=== PATIENT | female | born 1970 | race Two or more races ===

== ENCOUNTER 2016-12-17 13:44 | Inpatient (IN) | payer OTHER ==
--- NOTE | ~2016-12-17 | DS ---
Unit #: [id number] #: [id number] Patient: AMANDA GREENFIELD [id number] [address] [place], [place] [address] [id number] I MR#: [id number] NAME: AMANDA GREENFIELD ROOM: 338 Age: 46 Sex: F Admission Date: 12/17/2016 : 1970 Discharge Date: 12/18/2016 Attending Physician: Valdemar Alejandro M.D. Primary Care Physician: Jose Quintanilla M.D. DISCHARGE SUMMARY PRIMARY CARE PHYSICIAN Aure Vann M.D. DISCHARGE DIAGNOSES 1. Melena. 2. Likely lower gastrointestinal bleed. 3. Acute on chronic blood loss anemia. 4. Hyponatremia. CONSULTANTS General Surgery with Dr. Flaherty. PROCEDURES None. DIAGNOSTIC STUDIES IMAGING STUDIES: Consist of a chest x-ray on 12/17/2016, impression is low lung volumes, otherwise normal portable chest x-ray. LABORATORY RESULTS: On the day of discharge, the patient's labs include glucose 103, BUN 13, creatinine 0.8, sodium 139, potassium 4.2, chloride 107, CO2 of 23, calcium 2.9. CBC with WBC of 6.0, RBC 3.46, hemoglobin 8.9, hematocrit 27.4, MCV is 79.3, MCH is 25.9, MCHC is 32.6, RDW is 17.8, platelets are 285, MVP is 7.0. HOSPTIAL COURSE The patient is a 46-year-old St Helenian speaking only female, who presents to the emergency department due to symptoms of tiredness and weakness. The patient has history of GI bleed secondary to ulcerative esophagitis, presented to the emergency department with three days symptoms of tiredness and weakness and feeling as though she wanted to pass out, as well as black tarry stools. The patient has also been complaining of dizziness and palpitations. The patient had denied fever, chills, nausea, or vomiting. The patient denies any vaginal or bleeding ulcers. The patient have not menstruated for the past 8 months. The patient tells me that since her last hospitalization in 02/2016 for GI bleed, the patient have not seen a farm machinery erector or general surgeon. She has been seeing her primary care physician. She tells me that every time she sees her primary care physician, they do blood work and she never had a hemoglobin above 8.0. She tells me that recently she was started on therapy, which she describes it as likely therapy for H. pylori. She tells me that the treatment will be done by Thursday, but she presented to Unit #: [id number] #: [id number] Patient: AMANDA GREENFIELD the emergency department due to symptoms noted above. She had received 2 units of packed red blood cells. Her hemoglobin was 8.9 at the time of discharge. She was no longer symptomatic from anemia and no longer was seeing any melena. She was seen in consultation with surgery, who had offered her endoscopy to evaluate for the anemia, but the patient was very anxious to go home, therefore General Surgery had offered an outpatient workup next Thursday and again she had insisted on going home, therefore Dr. Flaherty of General Surgery have stressed to her that the patient should not be taking aspirin or NSAIDs or any other type of anti-inflammatory medications to refrain from tobacco or alcohol and spicy foods and to take omeprazole every day. She will follow up with him in his office on Thursday. At the time of discharge, the patient is in stable condition. DISCHARGE MEDICATIONS Includes to resume with her home management of Carafate 1 g orally t.i.d., calcium plus magnesium one tablet as needed, Protonix orally b.i.d. Added to her medicine ferrous gluconate one tablet orally daily. The patient is to see her primary care physician within 1 to 2 weeks for this hospitalization. Dictated by... Raine Rodgers PA-C for Stefano Andrade/dilip TD: 12/22/2016 11:33 JOB #: [id number] DISCHARGE SUMMARY X X DISCHARGE SUMMARY
--- NOTE | ~2016-12-17 | CR72 ---
[facility] A Service [facility] RADIOLOGY TEXT RESULTS PATIENT: AMANDA GREENFIELD LOCATION: [facility] 338-01 : [birth year] UNIT #: [id number] AGE: [address]: Valdemar Alejandro MD SEX: F ORDER DR: [id number] [address] [place] [id number] [facility]. [place], [place] [address] [id number] E MR#: [id number] Acc #: [id number] NAME: AMANDA GREENFIELD : 1970 SEX: F STUDY DATE/TIME: 12/17/2016 13:36 UNIT: CHARO ROOM: STUDY DESCRIPTION: CR Chest Single View Portable Attending Physician: Aure Vann M.D. Ordering Physician: Aure Vann M.D. Primary Care Physician: Jose Quintanilla M.D. MEDICAL IMAGING REPORT This report is preliminary unless electronic signature is present EXAM Chest, portable. DATE OF EXAM 12/17/2016, 1336 hours. CLINICAL HISTORY 46-year-old woman complaining of 2-day history of shortness of air, fatigue and weakness. COMPARISON None. FINDINGS Portable upright chest demonstrates low lung volumes. Allowing for this, the heart size is within normal limits. Mediastinal and hilar contours are normal. The lungs are clear and there are no effusions. IMPRESSION Low lung volumes, otherwise, normal portable chest. Dictated by... Bárbara Nayak M.D. THIS IS AN ELECTRONICALLY VERIFIED REPORT Bárbara Nayak M.D. at 12/18/2016 9:23 AM ROYER/josé miguel TD: 12/17/2016 15:51 JOB #: [id number] MEDICAL IMAGING REPORT [facility] A Service [facility] RADIOLOGY TEXT RESULTS PATIENT: AMANDA GREENFIELD LOCATION: [facility] 338-01 : [birth year] UNIT #: [id number] AGE: [address]: Valdemar Alejandro MD SEX: F ORDER DR: COPY
--- NOTE | ~2016-12-17 | HP ---
Unit #: [id number] #: [id number] Patient: AMANDA GREENFIELD [id number] [address] [address] [id number] I MR#: [id number] NAME: AMANDA GREENFIELD ROOM: [facility] Age: 46 Sex: F Admission Date: 12/17/2016 : 1970 Attending Physician: Zora Cisse M.D. Primary Care Physician: Jose Quintanilla M.D. HISTORY AND PHYSICAL CHIEF COMPLAINT Tired, weakness. HISTORY OF PRESENT ILLNESS The patient is a 46-year-old female with a history of GI bleed secondary to ulcerative esophagitis, presented to the emergency room with tired and weakness for two weeks. The patient stated the patient has not been feeling well, however, for the last 3 days the patient started passing black tarry stools. The patient also complains of dizziness and palpitations. The patient is Samoan-speaking and history is obtained by speaking to the patient's brother at the bedside. The patient denies any fever, chills, nausea or vomiting. The patient denies any vaginal or bleeding ulcer. PAST MEDICAL HISTORY History of GI bleed. HOME MEDICATIONS 1. Antacid chewable tablets. 2. Carafate. ALLERGIES No known drug allergies. SOCIAL HISTORY No history of smoking. She uses alcohol socially. Denies any illicit drug abuse. FAMILY HISTORY Reviewed and none. REVIEW OF SYSTEMS A 14-point review of systems performed and only pertinent positive findings as described above, remaining are negative. PHYSICAL EXAMINATION VITAL SIGNS: Temperature 98.4, pulse 77, respiratory rate 15, blood pressure 118/66, saturating 100% at room air. GENERAL: Patient is lying on the bed not in acute distress. HEENT: Atraumatic, normocephalic. Pupils equal, round, and reactive to light and accommodation. Extraocular movements are intact. Dry mucous membrane. Positive for pallor, no icterus. NECK: Supple. No JVD. LUNGS: Clear to auscultation bilaterally. No rhonchi, no wheezing. Unit #: [id number] #: [id number] Patient: AMANDA GREENFIELD HEART: Regular rate and rhythm. ABDOMEN: Soft, positive bowel sounds. EXTREMITIES: No cyanosis, no clubbing. NEUROLOGIC: No gross focal motor deficit. PSYCHIATRIC: Mood and affect are appropriate. DIAGNOSTIC STUDIES LABORATORY: Glucose 98, BUN 17, creatinine 0.7, sodium 134, potassium 4, chloride 108, bicarb 25, calcium 8.7, total protein 6.6, AST 16, ALT 14, alkaline phosphatase 44. Hemoglobin 6.7, hematocrit 21.5, WBC 5.8, platelets 310. UA is negative. ASSESSMENT AND PLAN 1. Melena. 2. Gastrointestinal bleed. 3. Anemia. 4. Hyponatremia. PLAN 1. Admit patient to inpatient with telemetry with the anemia that is symptomatic with dizziness and palpitations. 2. Patient is receiving 2 units of packed red blood cells. 3. Continue with Protonix 40 mg IV b.i.d. 4. [facility] consult/gastroenterology consult for the endoscopy as patient was seen by [facility] in the past for upper endoscopy. 5. Repeat the labs again in the morning. 6. Further recommendations will follow. Dictated by Stefano Wilson/rivka TD: 12/17/2016 20:55 JOB #: [id number] HISTORY AND PHYSICAL X X HISTORY AND PHYSICAL
--- NOTE | ~2016-12-17 | CO ---
Unit #: [id number] #: [id number] Patient: AMANDA GREENFIELD [id number] [address] [address] [id number] I MR#: [id number] NAME: AMANDA GREENFIELD ROOM: [facility] Age: 46 Sex: F Admission Date: 12/17/2016 : 1970 Attending Physician: Valdemar Alejandro M.D. Primary Care Physician: Jose Quintanilla M.D. Consultation Date: 12/18/2016 CONSULTATION REPORT REASON FOR CONSULTATION 1. Melena. 2. Blood loss anemia. CONSULTING PHYSICIAN Dr. Valdemar Alejandro of [facility]. HISTORY OF PRESENT ILLNESS Thank you very much for asking us to see Ms. Coronado. She is a 46-year-old female. We spoke with her through sales project engineer [id number]. Her past medical history is remarkable for GI bleed in February of last year. At that time, upper endoscopy revealed her to have a proximal gastric ulcer. She was began on proton pump inhibitors and acids and Carafate. She had been doing well off the medications until approximately 10-14 days ago. She began to not feel well. She restarted [id number] omeprazole. She developed an increased feeling of weakness and being tired. She developed melena three days ago. She came to the emergency room for further evaluation. She subsequently was found to have a hemoglobin of 6.7 with a MCV of 79.1. She received 2 units of packed red blood cells and her hemoglobin is now 8.9. She denies any aspirin or nonsteroidal use. She drinks minimal alcohol. She has no abdominal pain and discomfort. She presents at this time for further evaluation and treatment. PAST MEDICAL HISTORY History of GI bleed. MEDICATIONS AT HOME 1. Antacids. 2. Omeprazole. ALLERGIES No known medical allergies. SOCIAL HISTORY No current history of smoking, rare alcohol use. FAMILY HISTORY Noncontributory. REVIEW OF SYSTEMS Negative except for above. IMMUNIZATION Unit #: [id number] #: [id number] Patient: AMANDA GREENFIELD Immunization status unknown. PHYSICAL EXAMINATION GENERAL: A well-developed, well-nourished, female in no apparent distress. VITAL SIGNS: Afebrile. Vital signs stable. ABDOMEN: Flat, soft, nontender. DIAGNOSTIC STUDIES LABORATORY: Laboratory studies reveal to the patient have a CMP that is normal. The patient's hemoglobin on admission was 6.7, it is now 8.9 after 2 units of packed red blood cells. IMPRESSION A 46-year-old female with melena and significant anemia, most likely secondary to blood loss. We have recommended upper as well as lower endoscopy for further evaluation. All the risks and benefits of the procedure have been fully explained to the patient in detail including the risk of bleeding, perforation, emergency surgery, additional surgery, , and other risks. She understands completely; however, she wishes to go home and have this performed as an outpatient early next week. We have explained to the patient that we feel it would be safest and best to do this here while she is stable and things are controlled; however, she is insistent on leaving and understands and accepts the risks of recurrent bleeding, falling, , returning to the emergency room, and many other additional risks. We have recommended no aspirin or nonsteroidal anti-inflammatory medications, no tobacco or alcohol or spicy foods and to take two omeprazole every day. My office will make the arrangements for the patient to have endoscopy performed early next week. Dictated by... Stefano Jade TD: 12/19/2016 09:08 JOB #: [id number] CC: [facility] CONSULTATION REPORT X Niles Flaherty MD X CONSULTATION REPORT
--- NOTE | ~2016-12-17 | EKG ---
PATIENT: AMANDA GREENFIELD UNIT #: [id number] Ventricular Rate: 67 BPM Atrial Rate: 67 BPM P-R Interval: 180 ms QRS Duration: 90 ms Q-T Interval: 354 ms QTC Calculation(Bezet): 374 ms P [place]: 23 degrees Calculated R [place]: 3 degrees Calculated T [place]: 5 degrees Diagnosis Line: Normal sinus rhythm with sinus arrhythmia Diagnosis Line: Normal ECG Diagnosis Line: Diagnosis Line: Confirmed by CHANNING MCHUGH MD ([id number]) on 12/17/2016 Diagnosis Line: 6:25:35 PM INTERPRETING MD: JEISON ROMO
[~2016-12-17 13:44] MED LIST: ANTACID CHEWAB1 EACH PO; CARAFATE1 GM PO; PROTONIX PO; PROTONIX20 MG PO
[2016-12-17 14:14] LABS: URINE SOURCE CLEAN CATCH
[2016-12-17 14:26] LABS: URINE APPEARANCE CLEAR; URINE BILIRUBIN NEG (NEG); URINE BLOOD NEG (NEG); URINE COLOR YELLOW; URINE GLUCOSE NEG (NEG); URINE KETONE NEG (NEG); URINE LEUKOCYTE ESTERASE NEG (NEG); URINE NITRATE NEG (NEG); URINE PH 5.5 (5-8); URINE PROTEIN NEG (NEG); URINE SPECIFIC GRAVITY 1.019 (1.003-1.035); URINE UROBILINOGEN 0.2 MG/DL (NEG)
[2016-12-17 14:30] LABS: CULTURE INDICATED? NO
[2016-12-17 14:49] LABS: POC - CKMB <1.0 ng/mL (0.0-7.9); POC - TROPONIN <0.05 ng/mL (<=0.05)
[2016-12-17 15:08] LABS: BASOPHIL# 0.1 X10e3 (0-0.3); BASOPHIL% 1.2 % (0-2.5); EOSINOPHIL# 0.1 X10e3 (0-0.7); EOSINOPHIL% 1.6 % (0.0-7.0); HEMATOCRIT 21.5 % (35.0-45.0); LYMPHOCYTE# 1.4 X10e3 (1.0-3.5); LYMPHOCYTE% 24.6 % (17.0-45.0); MEAN CELL VOLUME 79.1 FL (83-96); MEAN CORPUSCULAR HEMOGLOBIN 24.8 PG (28-34); MEAN CORPUSCULAR HGB CONC 31.4 g/dL (30-36); MEAN PLATELET VOLUME 7.5 FL (6.5-11.5); MONOCYTE# 0.4 X10e3 (0-1.0); MONOCYTE% 6.6 % (3.0-12.0); NEUTROPHIL# 3.8 X10e3 (1.5-7.1); PLATELET COUNT 310 X10e3 (140-420); RED BLOOD COUNT 2.71 X10e (3.90-5.30); RED CELL DISTRIBUTION WIDTH 18.6 % (11.0-15.5); WHITE BLOOD COUNT 5.8 X10e3 (4.0-10.5)
[2016-12-17 15:17] LABS: DIFF IND YES; HEMOGLOBIN 6.7 gm/dL (12.0-16.0)
[2016-12-17 15:31] LABS: ALBUMIN SERUM 3.7 g/dL (3.5-5.0); ALKALINE PHOSPHATASE 44 U/L (32-92); ALT (SGPT) 14 U/L (10-40); AST (SGOT) 16 U/L (10-42); BILIRUBIN, DIRECT <0.1 mg/dL (0.0-0.2); BILIRUBIN,INDIRECT 0.2 mg/dL (0.0-0.9); BILIRUBIN,TOTAL 0.3 mg/dL (0.2-2.0); BLOOD UREA NITROGEN 17 mg/dL (9-23); BUN/CREATININE RATIO 24.28; CALCIUM SERUM 8.7 mg/dL (8.4-10.2); CARBON DIOXIDE 25 mmol/L (22-31); CHLORIDE 108 mmol/L (100-111); CREATININE SERUM 0.7 mg/dL (0.6-1.4); GLOM FILT RATE Estimated ABOVE60 mL/min (>60); GLUCOSE FASTING 98 mg/dL (70-110); PROTEIN TOTAL SERUM 6.6 g/dL (6.0-8.3); SODIUM 134 mmol/L (135-145)
[2016-12-17 15:35] LABS: ANISOCYTOSIS SL; HYPOCHROMIA SL; PLATELET ESTIMATE NORMAL (NORMAL); POIKILOCYTOSIS SL; RBC NORMAL YES
[2016-12-18 06:28] LABS: BASOPHIL# 0.1 X10e3 (0-0.3); EOSINOPHIL# 0.2 X10e3 (0-0.7); EOSINOPHIL% 2.7 % (0.0-7.0); HEMATOCRIT 27.4 % (35.0-45.0); LYMPHOCYTE# 1.9 X10e3 (1.0-3.5); LYMPHOCYTE% 32.1 % (17.0-45.0); MEAN CELL VOLUME 79.3 FL (83-96); MEAN CORPUSCULAR HEMOGLOBIN 25.9 PG (28-34); MEAN CORPUSCULAR HGB CONC 32.6 g/dL (30-36); MEAN PLATELET VOLUME 7.8 FL (6.5-11.5); MONOCYTE# 0.4 X10e3 (0-1.0); NEUTROPHIL# 3.4 X10e3 (1.5-7.1); NEUTROPHIL% 57.2 % (40-75); PLATELET COUNT 285 X10e3 (140-420); RED BLOOD COUNT 3.46 X10e (3.90-5.30); RED CELL DISTRIBUTION WIDTH 17.8 % (11.0-15.5)
[2016-12-18 06:41] LABS: HEMOGLOBIN 8.9 gm/dL (12.0-16.0)
[2016-12-18 06:42] LABS: DIFF IND NO
[2016-12-18 07:24] LABS: BLOOD UREA NITROGEN 15 mg/dL (9-23); BUN/CREATININE RATIO 18.75; CALCIUM SERUM 9.2 mg/dL (8.4-10.2); CARBON DIOXIDE 23 mmol/L (22-31); CHLORIDE 107 mmol/L (100-111); CREATININE SERUM 0.8 mg/dL (0.6-1.4); GLOM FILT RATE Estimated ABOVE60 mL/min (>60); GLUCOSE FASTING 103 mg/dL (70-110); POTASSIUM 4.2 mmol/L (3.5-5.1); SODIUM 139 mmol/L (135-145)
[2016-12-18] MEDS ORDERED: IRON1 TAB PO (15:56)
[2016-12-24] MEDS ORDERED: PRILOSEC PO (09:42)
== END 2016-12-18 16:22 | disposition home or self-care (01) | DRG 378 ==
LOC: CED 13:44 → CEDOF 19:03 → C3A PCU 20:30
PROVIDERS: Emergency Medicine; Internal Medicine
PROC: 30233N1 Transfusion of Nonautologous Red Blood Cells into Peripheral Vein, Percutaneous Approach (ICD-10-PCS; principal; 2016-12-17)
DX: K92.2 Gastrointestinal hemorrhage, unspecified (principal); D62 Acute posthemorrhagic anemia; E87.1 Hypo-osmolality and hyponatremia; B96.81 Helicobacter pylori [H. pylori] as the cause of diseases classified elsewhere
CPT/HCPCS: 36415; 71010; 80048; 80076; 81003; 82553; 82947; 84484; 85025; 86850; 86900; 86901; 86923; 93005; 94760; 99285; C9113; P9016

== ENCOUNTER → 2016-12-24 | Day surgery (SDC) | payer OTHER ==
[~2016-12-24] MED LIST changes: +IRON1 TAB PO; +PRILOSEC PO
== END | disposition home or self-care (01) ==
LOC: COPS 08:35
DX: D64.9 Anemia, unspecified (principal); Z53.9 Procedure and treatment not carried out, unspecified reason; Z87.440 Personal history of urinary (tract) infections; Z79.899 Other long term (current) drug therapy
CPT/HCPCS: 84703

== ENCOUNTER → 2017-03-17 | Outpatient (CLI) | payer OTHER ==
--- NOTE | ~2017-03-17 | MY7 ---
[facility] A Service of [facility] & [facility] RADIOLOGY TEXT RESULTS PATIENT: AMANDA CABAN LOCATION: [facility] : 70 UNIT #: [id number] AGE: [address]: Jose Quintanilla MD SEX: F ORDER DR: [id number] [facility] [address] [place], [place] [address] [id number] O MR#: [id number] Acc #: [id number] NAME: AMANDA CABAN : 1970 SEX: F STUDY DATE/TIME: 03/17/2017 11:35 UNIT: [facility] ROOM: STUDY DESCRIPTION: MY Mammogram Dx Dig Lt Attending Physician: Jose Quintanilla M.D. Referring Physician: Jose Quintanilla M.D. Ordering Physician: Jose Quintanilla M.D. Primary Care Physician: Jose Quintanilla M.D. MEDICAL IMAGING REPORT This report is preliminary unless electronic signature is present EXAM Diagnostic left mammogram 03/17 INDICATIONS 6-month follow up of nodular density seen on prior baseline screening mammogram. FINDINGS Digital CC, MLO, ML views of the left breast are compared with 06/12/2016. Breast parenchyma remains heterogeneously dense. The pattern overall is stable. A partially obscured nodule in the upper outer deep breast does measure smaller today. It was previously about 1.6 cm mammographically and today is about 1.1 cm. No new mammographic lesions are seen, and there are no suspicious microcalcifications. Ultrasound of the left breast was aborted subsequently performed and compared with the ultrasound from 06/20/2016. The prior ultrasound showed two potential complicated cysts in the left breast, one at 2 o'clock to 3 o'clock and the other at 1 o'clock. The current ultrasound shows the lesion at 1 o'clock to have a more solid appearance currently although it does have some increased through transmission. It measures up to about 12 mm in greatest dimension today. Please note that the current ultrasound and the prior ultrasound are performed on two different machines. This may account for some of the differences in appearance. The previously seen hypoechoic lesion at the 2-3 o'clock position is much more difficult to see today and may have some shadowing associated with it. It is recommended that the patient return for ultrasound guided biopsy of both of these areas in the left breast. Findings and recommendations were discussed with the patient at the time of her examination today via an contracting officer. Findings were also discussed with Gris in the breast advocates office for physician notification purposes. [facility] A Service of [facility] RADIOLOGY TEXT RESULTS PATIENT: AMANDA CABAN LOCATION: [facility] : 70 UNIT #: [id number] AGE: [address]: Jose Quintanilla MD SEX: F ORDER DR: IMPRESSION 1. The mammogram is actually improved. 2. 2 hypoechoic lesions seen in the left breast previously have changed in their appearance. Some of this may be due to differences in the new and old ultrasound machine. However, neither of the 2 lesions can be classified as simple cysts, and I would recommend ultrasound-guided core biopsy of both of these areas in the left breast. Patients over the age of 40 are entered into a reminder system with target due date for the next mammogram. A result letter will also be sent to the patient. BIRADS: 4 - Suspicious abnormality. Biopsy should be considered. Dictated by... Serg Sebastian Jr., M.D. THIS IS AN ELECTRONICALLY VERIFIED REPORT Serg Sebastian Jr., M.D. at 03/17/2017 4:23 PM HERMILO/sarmad TD: 03/17/2017 13:10 JOB #: [id number] MEDICAL IMAGING REPORT Page 1 of 1 COPY
--- NOTE | ~2017-03-17 | US24 ---
[facility] A Service of [facility] & [facility] RADIOLOGY TEXT RESULTS PATIENT: AMANDA CABAN LOCATION: [facility] : 70 UNIT #: [id number] AGE: [address]: Jose Quintanilla MD SEX: F ORDER DR: [id number] [facility] [address] [place], [place] [address] [id number] O MR#: [id number] Acc #: [id number] NAME: AMANDA CABAN : 1970 SEX: F STUDY DATE/TIME: 03/17/2017 10:56 UNIT: [facility] ROOM: STUDY DESCRIPTION: US Breast Unilateral Attending Physician: Jose Quintanilla M.D. Referring Physician: Jose Quintanilla M.D. Ordering Physician: Jose Quintanilla M.D. Primary Care Physician: Jose Quintanilla M.D. MEDICAL IMAGING REPORT This report is preliminary unless electronic signature is present EXAM Left breast ultrasound, 03/17 INDICATION Abnormal mammogram. 6-month followup of 2 hypoechoic lesions in the left breast. FINDINGS For a full report, please see the mammogram report dated 03/17/2017. Patients over the age of 40 are entered into a reminder system with target due date for the next mammogram. A result letter will also be sent to the patient. BIRADS 4 Suspicious Abnormality; Biopsy Should Be Considered Dictated by... Serg Sebastian Jr., M.D. THIS IS AN ELECTRONICALLY VERIFIED REPORT Serg Sebastian Jr., M.D. at 03/18/2017 10:17 AM HERMILO/ana TD: 03/17/2017 16:29 JOB #: [id number] MEDICAL IMAGING REPORT Page 1 of 1 COPY
== END | disposition home or self-care (01) ==
LOC: CWCC 10:30
DX: R92.8 Other abnormal and inconclusive findings on diagnostic imaging of breast (principal); N63 Unspecified lump in breast
CPT/HCPCS: 76641; G0206